=== PATIENT | female | born 1975 ===

== ENCOUNTER 2016-11-27 19:25 | Emergency (ER) | payer OTHER ==
[2016-11-28 09:02] LABS: HEMOGLOBIN 12.9 g/dL (11.0-16.0); MEAN CELL VOLUME 94.5 fL (81.0-99.0); MEAN CORPUSCULAR HEMOGLOBIN 31.2 pg (27.0-31.0); MEAN CORPUSCULAR HGB CONC 33.1 g/dL (33.0-37.0); MEAN PLATELET VOLUME 8.3 fL (7.2-11.7); RBC 4.11 Mil/uL (3.80-5.20); RED CELL DISTRIBUTION WIDTH 13.4 % (11.5-14.5)
[2016-11-28 09:22] LABS: ALBUMIN 3.7 g/dL (3.5-5.0); ALT/SGPT 60 U/L (9-52); AST/SGOT 64 U/L (14-36); BLOOD UREA NITROGEN 13 mg/dL (7-17); CALCIUM 8.7 mg/dl (8.6-10.4); GFR AFRICAN-AMERICAN > 60; GFR NON-AFRICAN AMERICAN > 60
[2016-11-28 10:11] LABS: SQUAMOUS EPITHIAL 2 /hpf (0-5); URINE BACTERIA RARE (<OCC); URINE BILIRUBIN NEGATIVE (NEGATIVE); URINE BLOOD NEGATIVE (NEGATIVE); URINE CLARITY Clear (Clear); URINE COLOR Yellow (YELLOW); URINE GLUCOSE (UA) NORMAL (Normal); URINE LEUKOCYTE ESTERASE NEG Leu/uL (Negative); URINE NITRATE NEGATIVE (NEGATIVE); URINE PROTEIN NEGATIVE (NEGATIVE); URINE UROBILINOGEN NORMAL mg/dL (0.2-1.0)
--- NOTE | 2016-11-29 11:23 | US ---
PROCEDURE: OB Pelvic Ultrasound HISTORY: COMPARISON: None available. TECHNIQUE: Transabdominal and transvaginal pelvic ultrasound was FINDINGS: UTERUS: Single Live intrauterine gestation. Gestational sac diameter is too small to estimate gestational age. Yolk sac is visualized. pole is not identified. Breann-gestational hemorrhage: None. Uterus measures 11.2 x 5.6 x 6.8 cm. Anteverted, normal in size and appearance. No fibroid or other mass lesion seen. CERVIX: Long and closed. No cervical abnormality seen. RIGHT OVARY: Not visualized. LEFT OVARY: Measures 3.1 x 2.9 x 2.9 cm. No mass. Normal flow. There is a 2.0 cm simple cyst. FREE FLUID: None. OTHER FINDINGS: None. IMPRESSION: Single live intrauterine gestation too small to estimate gestational age. Yolk sac is visualized. pole is not identified on the current examination. Clinical and imaging follow-up is advised to confirm viability. A preliminary report was provided by [facility].
== END 2016-11-28 01:47 | disposition home or self-care (01) ==
LOC: C.ER 19:25
DX: O26.891 Other specified pregnancy related conditions, first trimester (principal); R10.2 Pelvic and perineal pain; R11.0 Nausea; Z3A.00 Weeks of gestation of pregnancy not specified

== ENCOUNTER 2016-12-17 21:39 | Emergency (ER) | payer OTHER ==
--- NOTE | 2016-12-17 22:16 | C.PDOC ---
History Of Present Illness 41 year old female who presents to the ER with of cramping lower abdominal pain and hematuria. Patient reports she is ; LMP was 10/21. Denies fever, chills, nausea, or vomiting. Chief Complaint (Nursing): Abdominal Pain History Per: Patient History/Exam Limitations: no limitations Onset/Duration Of Symptoms: Days Current Symptoms Are (Timing): Still Present Location Of Pain/Discomfort: RLQ, LLQ Radiation Of Pain To:: None Quality Of Discomfort: Cramping Associated Symptoms: Urinary Symptoms. denies: Fever, Chills, Nausea, Vomiting Exacerbating Factors: None Alleviating Factors: None Recent travel outside of the [place]: No Abnormal Vaginal Bleeding: No Past Medical History Reviewed: Historical Data, Nursing Documentation, Vital Signs Vital Signs: Last Vital Signs Temp 98 F 12/18/16 00:51 Pulse 70 12/18/16 00:51 Resp 14 12/18/16 00:51 BP 120/70 12/18/16 00:51 Pulse Ox 98 12/18/16 00:51 - Medical History PMH: No Chronic Diseases Surgical History: Appendectomy, Cholecystectomy Family History: States: Unknown Family Hx - Social History Hx Alcohol Use: No Hx Substance Use: No - Immunization History Hx Tetanus Toxoid Vaccination: No Hx Influenza Vaccination: No Hx Pneumococcal Vaccination: No Review Of Systems Constitutional: Negative for: Fever, Chills Gastrointestinal: Positive for: Abdominal Pain. Negative for: Nausea, Vomiting Genitourinary: Positive for: Hematuria Physical Exam - Physical Exam Appears: Non-toxic Skin: Normal Color, Warm, Dry Head: Atraumatic, Normacephalic Oral Mucosa: Moist Chest: Symmetrical, No Tenderness Cardiovascular: Rhythm Regular, No Murmur Respiratory: Normal Breath Sounds, No Rales, No Rhonchi, No Wheezing Gastrointestinal/Abdominal: Soft, Tenderness (Minimal LLQ), Other (Obese) Pelvic: Normal External Exam, No Vaginal Bleeding, No Cervical Motion Tenderness , No Adnexal Tenderness, Other (Cervix closed) Neurological/Psych: Oriented x3, Normal Speech, Normal Cognition ED Course And Treatment - Laboratory Results Result Diagrams: 12/17/16 23:27 12/17/16 23:27 O2 Sat by Pulse Oximetry: 100 (Room air) Pulse Ox Interpretation: Normal - CT Scan/US Pelvic US Other Rad Studies (CT/US): Read By Radiologist, Radiology Report Reviewed CT/US Interpretation: EXAM: US , transabdominal and Transvaginal. CLINICAL HISTORY: 41 years old, female; Pain; complicated by abdominal or pelvic pain; Lower; First. trimester; Gestational age or lmp: [id number]; ; Additional info: Lower abd pain/ bleeding. TECHNIQUE: Real -time transabdominal and transvaginal obstetrical ultrasound of the maternal pelvis and a first. trimester with image documentation. Transvaginal imaging was used for better evaluation. of the fetus and adnexa. COMPARISON: 11/28/2016. FINDINGS: Gestation: An irregular gestational sac is identified within the uterus a mean gestational sac size of. 11.2 mm, corresponding to approximate gestational age of 5 weeks and 2 days. A pole is detected, with a crown-rump length measuring 3.9 mm, corresponding to approximate. gestational age of 6 weeks and one day. No cardiac activity is detected. A subchorionic hemorrhage is detected measuring 8.3 mm in greatest dimension. The cervix measures 4.1 cm, and is closed. Placenta/amniotic fluid: Cannot be adequately evaluated due to the early gestational age. Uterus/cervix: Unremarkable. No myometrial mass. Ovaries: Again identified within the left ovary is a rounded anechoic focus measuring 13 mm in. greatest dimension, consistent with a simple cyst. The right ovary is absent. Free fluid: No free fluid. IMPRESSION: Irregular gestational sac, with measurements corresponding to an approximate gestational age of 6. weeks and 1 day. No cardiac activity is detected. 8.3 mm subchorionic hemorrhage. 4 cm cervix, closed. Simple cyst within the left ovary, largely unchanged Progress Note: Blood work, Urinalysis, and pelvic US ordered. IV fluids administered. Disposition - Disposition Referrals: [facility] [Outside] Disposition: HOME/ ROUTINE Disposition Time: 00:19 Condition: STABLE Instructions: Abdominal Pain in (ED) - POA Present On Arrival: None - Clinical Impression Clinical Impression: Abdominal pain affecting - Scribe Statement The provider has reviewed the documentation as recorded by the Scribe Aj Gan All medical record entries made by the Scribe were at my direction and personally dictated by me. I have reviewed the chart and agree that the record accurately reflects my personal performance of the history, physical exam, medical decision making, and the department course for this patient. I have also personally directed, reviewed, and agree with the discharge instructions and disposition.
[2016-12-17] MEDS ORDERED: Sodium Chloride 0.9% 1,000 ML IV ONE (22:19)
[2016-12-17 23:30] LABS: BASO # 0.1 K/uL (0.0-0.2); BASO % 1.3 % (0.0-2.0); EOS # 0.3 K/uL (0.0-0.7); EOS % 3.1 % (0.0-4.0); HEMOGLOBIN 13.2 g/dL (11.0-16.0); LYMPH # 2.5 K/uL (1.0-4.3); LYMPH % 25.2 % (20.0-40.0); MEAN CORPUSCULAR HEMOGLOBIN 31.8 pg (27.0-31.0); MEAN CORPUSCULAR HGB CONC 33.5 g/dL (33.0-37.0); MEAN PLATELET VOLUME 8.2 fL (7.2-11.7); MONO # 1.3 K/uL (0.0-0.8); MONO % 12.7 % (0.0-10.0); NEUT # 5.8 K/uL (1.8-7.0); NEUT % 57.7 % (50.0-75.0); RBC 4.16 Mil/uL (3.80-5.20); RED CELL DISTRIBUTION WIDTH 13.7 % (11.5-14.5)
--- NOTE | 2016-12-17 23:32 | US ---
EXAM: US , transabdominal and Transvaginal CLINICAL HISTORY: 41 years old, female; Pain; complicated by abdominal or pelvic pain; Lower; First trimester; Gestational age or lmp: [id number]; ; Additional info: Lower abd pain/ bleeding TECHNIQUE: Real-time transabdominal and transvaginal obstetrical ultrasound of the maternal pelvis and a first trimester with image documentation. Transvaginal imaging was used for better evaluation of the fetus and adnexa. COMPARISON: 11/28/2016 FINDINGS: Gestation: An irregular gestational sac is identified within the uterus a mean gestational sac size of 11.2 mm, corresponding to approximate gestational age of 5 weeks and 2 days. A pole is detected, with a crown-rump length measuring 3.9 mm, corresponding to approximate gestational age of 6 weeks and one day. No cardiac activity is detected. A subchorionic hemorrhage is detected measuring 8.3 mm in greatest dimension. The cervix measures 4.1 cm, and is closed. Placenta/amniotic fluid: Cannot be adequately evaluated due to the early gestational age. Uterus/cervix: Unremarkable. No myometrial mass. Ovaries: Again identified within the left ovary is a rounded anechoic focus measuring 13 mm in greatest dimension, consistent with a simple cyst. The right ovary is absent. Free fluid: No free fluid. IMPRESSION: Irregular gestational sac, with measurements corresponding to an approximate gestational age of 6 weeks and 1 day. No cardiac activity is detected. 8.3 mm subchorionic hemorrhage. 4 cm cervix, closed. Simple cyst within the left ovary, largely unchanged. Please correlate these findings with the serum beta hCG (not resulted at the time of this examination) with short term sonographic followup.
[2016-12-17 23:41] LABS: ALBUMIN 3.9 g/dL (3.5-5.0)
[2016-12-17 23:44] LABS: AST/SGOT 71 U/L (14-36); GFR AFRICAN-AMERICAN > 60; GFR NON-AFRICAN AMERICAN > 60
[2016-12-17 23:45] LABS: ALB/GLOB RATIO 1.1 (1.0-2.1); ALT/SGPT 91 U/L (9-52); BLOOD UREA NITROGEN 13 mg/dL (7-17); CALCIUM 8.8 mg/dl (8.6-10.4)
[2016-12-18 00:39] LABS: INR 1.1
[2016-12-18 00:43] LABS: SQUAMOUS EPITHIAL 2 /hpf (0-5); URINE BILIRUBIN NEGATIVE (NEGATIVE); URINE BLOOD NEGATIVE (NEGATIVE); URINE CLARITY Clear (Clear); URINE COLOR Straw (YELLOW); URINE GLUCOSE (UA) NORMAL (Normal); URINE LEUKOCYTE ESTERASE NEG Leu/uL (Negative); URINE NITRATE NEGATIVE (NEGATIVE); URINE PROTEIN NEGATIVE (NEGATIVE); URINE UROBILINOGEN NORMAL mg/dL (0.2-1.0)
[2016-12-18 00:52] VITALS: BP 120/70; PULSE 70; RESP 14; TEMP 98
[2016-12-18 05:11] VITALS: O2SAT 100
== END 2016-12-18 00:52 | disposition home or self-care (01) ==
LOC: C.ER 21:39
DX: O26.891 Other specified pregnancy related conditions, first trimester (principal); R10.32 Left lower quadrant pain; Z3A.01 Less than 8 weeks gestation of pregnancy

== ENCOUNTER 2016-12-27 10:39 | Emergency (ER) | payer OTHER ==
[2016-12-27 10:44] VITALS: TEMP 98.3; O2SAT 98
[2016-12-27] MEDS ORDERED: Sodium Chloride 0.9% 1,000 ML IV ONE (12:18)
[2016-12-27] MEDS ORDERED: Sodium Chloride 0.9% 1,000 ML ONE (12:33)
[2016-12-27 12:37] LABS: BASO # 0.1 K/uL (0.0-0.2); BASO % 1.2 % (0.0-2.0); EOS # 0.2 K/uL (0.0-0.7); EOS % 2.6 % (0.0-4.0); HEMOGLOBIN 12.4 g/dL (11.0-16.0); LYMPH # 1.4 K/uL (1.0-4.3); LYMPH % 22.7 % (20.0-40.0); MEAN CELL VOLUME 96.1 fL (81.0-99.0); MEAN CORPUSCULAR HEMOGLOBIN 32.3 pg (27.0-31.0); MEAN CORPUSCULAR HGB CONC 33.6 g/dL (33.0-37.0); MEAN PLATELET VOLUME 8.6 fL (7.2-11.7); MONO # 0.6 K/uL (0.0-0.8); MONO % 10.1 % (0.0-10.0); NEUT % 63.4 % (50.0-75.0); NRBC % 0.1 % (0.0-2.0); RBC 3.85 Mil/uL (3.80-5.20); RED CELL DISTRIBUTION WIDTH 13.5 % (11.5-14.5); WHITE BLOOD COUNT 6.4 K/uL (4.8-10.8)
--- NOTE | 2016-12-27 12:45 | C.PDOC ---
History Of Present Illness 41 y/o female presents to the ED with complaints of vaginal bleeding. Pt is currently , spotting started 1 week ago, now is bleeding heavy clots. Pt has been to ED several times with this . US in the past showed intrauterine gestational sac, pt states gestational age is younger than she had thought. She has also had multiple beta-HCG tests, each test increasing from the previous. Pt is concerned and requesting evaluation for miscarriage. Denies abdominal cramping, nausea, vomiting, headache, fever, chills or any other complaints. Time Seen by Provider: 12/27/16 11:05 Chief Complaint (Nursing): Female Genitourinary History Per: Patient History/Exam Limitations: no limitations Onset/Duration Of Symptoms: Days Current Symptoms Are (Timing): Worse Severity: Moderate Associated Symptoms: denies: Fever, Chills, Nausea, Vomiting Alleviating Factors: None Recent travel outside of the [place]: No Abnormal Vaginal Bleeding: Yes Past Medical History Reviewed: Historical Data, Nursing Documentation, Vital Signs Vital Signs: Last Vital Signs Temp 98.3 F 12/27/16 10:43 Pulse 101 H 12/27/16 10:43 Resp 20 12/27/16 10:43 BP 142/91 H 12/27/16 10:43 Pulse Ox 98 12/27/16 12:47 Surgical History: Appendectomy, Cholecystectomy Family History: States: Unknown Family Hx - Social History Hx Alcohol Use: No Hx Substance Use: No - Immunization History Hx Tetanus Toxoid Vaccination: No Hx Influenza Vaccination: No Hx Pneumococcal Vaccination: No Review Of Systems Except As Marked, All Systems Reviewed And Found Negative. Constitutional: Negative for: Fever, Chills Gastrointestinal: Negative for: Nausea, Vomiting, Abdominal Pain Genitourinary: Positive for: Vaginal Bleeding Neurological: Negative for: Headache Physical Exam - Physical Exam Appears: Non-toxic, No Acute Distress Skin: Warm, Dry, No Rash Head: Atraumatic, Normacephalic Neck: Normal, Normal ROM Chest: Symmetrical Cardiovascular: Rhythm Regular Respiratory: Normal Breath Sounds, No Rales, No Rhonchi, No Wheezing Gastrointestinal/Abdominal: Normal Exam, Soft, No Tenderness Extremity: Normal ROM Extremity: Bilateral: Atraumatic Neurological/Psych: Oriented x3, Normal Speech, Normal Cognition ED Course And Treatment - Laboratory Results Result Diagrams: 12/27/16 12:30 12/27/16 12:30 O2 Sat by Pulse Oximetry: 98 (room air) Pulse Ox Interpretation: Normal Progress Note: Plan: labs, UA, beta-hcg Medical Decision Making Medical Decision Making: spoke with Dr. Zambrano, US shows fetys, , yolk sack, so has grown from last visit. Patient will be discharged and advised to follow up with Dr. Marquez in 2 days. Disposition Discussed With Dr.: Isaias Greer Counseled Patient/Family Regarding: Studies Performed, Diagnosis - Disposition Referrals: [facility] at [facility] [Outside] Disposition: HOME/ ROUTINE Disposition Time: 16:16 Condition: STABLE Additional Instructions: Follow up with Dr. Zimmerman in the [facility], on TuesdayDecember 29 at 8am. Bed rest, no working, no sexual intercourse. Instructions: Threatened Miscarriage (ED) Forms: General Discharge Instructions - POA Present On Arrival: None - Clinical Impression Clinical Impression: Threatened miscarriage - Scribe Statement The provider has reviewed the documentation as recorded by the Mary Rudolph Provider Attestation: All medical record entries made by the Mary were at my direction and personally dictated by me. I have reviewed the chart and agree that the record accurately reflects my personal performance of the history, physical exam, medical decision making, and the department course for this patient. I have also personally directed, reviewed, and agree with the discharge instructions and disposition.
[2016-12-27 12:47] LABS: GFR AFRICAN-AMERICAN > 60; GFR NON-AFRICAN AMERICAN > 60
[2016-12-27 12:48] LABS: BLOOD UREA NITROGEN 14 mg/dL (7-17); CALCIUM 8.7 mg/dl (8.6-10.4); SQUAMOUS EPITHIAL 5 /hpf (0-5); URINE BILIRUBIN NEGATIVE (NEGATIVE); URINE BLOOD 3+ (NEGATIVE); URINE CLARITY Clear (Clear); URINE COLOR Amber (YELLOW); URINE GLUCOSE (UA) NORMAL (Normal); URINE LEUKOCYTE ESTERASE NEG Leu/uL (Negative); URINE NITRATE NEGATIVE (NEGATIVE); URINE PROTEIN NEGATIVE (NEGATIVE); URINE UROBILINOGEN NORMAL mg/dL (0.2-1.0)
--- NOTE | 2016-12-27 15:33 | US ---
Indication: and bleeding Comparison: 1st trimester Ob ultrasound performed 12/17/16 Technique: Transvaginal pelvic ultrasound. Findings: The uterus measures approximately 9.4 x 5.5 x 6.2 cm. Anteverted. There is a single intrauterine fetus present. 5 mm yolk sac. The irregularly-shaped gestational sac measures 1.1 cm and is compatible with a gestational age of 5 weeks 2 days. The crown-rump length measures 0.2 cm and is compatible with a gestational age of 5 weeks 5 days. heart motion is not detected. Too small adjacent hypodense region suspected to reflect subchorionic hemorrhages each measuring approximately 6 mm. The right ovary has been surgically resected. The left ovary measures 1.3 x 2.6 x 3.3 cm and contains 8 mm anechoic lesion consistent with a cyst. Blood flow is demonstrated to the left ovary. Impression: Irregularly shaped gestational sac. Estimated gestational age 5 weeks 2 days by gestational sac calculation and 5 weeks 5 days by crown-rump length calculation. heart motion is not detected. Correlate clinically. 2 suspected subchorionic hemorrhages measuring approximately 6 mm. Right oophorectomy. Left ovarian cyst.
[2016-12-27 16:38] VITALS: BP 117/80; PULSE 87; RESP 18
== END 2016-12-27 16:38 | disposition home or self-care (01) ==
LOC: C.ER 10:39
DX: O20.0 Threatened abortion (principal); Z3A.01 Less than 8 weeks gestation of pregnancy
CPT/HCPCS: 76817; 80048; 81001; 84702; 85025; 86850; 86900; 96360; 99285; J7040

== ENCOUNTER 2017-06-06 21:05 | Emergency (ER) | payer OTHER ==
[2017-06-06 21:05] VITALS: BMI 42.3
[2017-06-06 22:42] LABS: BASO # 0.1 K/uL (0.0-0.2); BASO % 0.9 % (0.0-2.0); EOS # 0.2 K/uL (0.0-0.7); EOS % 2.5 % (0.0-4.0); HEMOGLOBIN 13.3 g/dL (11.0-16.0); LYMPH # 2.2 K/uL (1.0-4.3); LYMPH % 27.3 % (20.0-40.0); MEAN CELL VOLUME 94.3 fL (81.0-99.0); MEAN CORPUSCULAR HEMOGLOBIN 32.3 pg (27.0-31.0); MEAN CORPUSCULAR HGB CONC 34.3 g/dL (33.0-37.0); MEAN PLATELET VOLUME 8.9 fL (7.2-11.7); MONO # 0.9 K/uL (0.0-0.8); NEUT # 4.7 K/uL (1.8-7.0); NEUT % 58.3 % (50.0-75.0); RBC 4.13 Mil/uL (3.80-5.20); RED CELL DISTRIBUTION WIDTH 13.4 % (11.5-14.5); WHITE BLOOD COUNT 8.1 K/uL (4.8-10.8)
[2017-06-06 22:51] LABS: ALB/GLOB RATIO 1.1 (1.0-2.1); ALT/SGPT 83 U/L (9-52); AST/SGOT 74 U/L (14-36); BLOOD UREA NITROGEN 14 mg/dL (7-17); CALCIUM 8.3 mg/dl (8.6-10.4); GFR AFRICAN-AMERICAN > 60; GFR NON-AFRICAN AMERICAN > 60
--- NOTE | 2017-06-06 22:52 | C.PDOC ---
History Of Present Illness Patient is a 42 y/o female who presents to the ED with a complaint of CP and SOB upon waking up this morning. Patient reports to have tried taking a nap in attempt to alleviate symptoms, but awoke again without relief. Denies any nausea , vomiting, diarrhea, wheezing, coughing, recent travel, long trips, control, or leg swelling. Patient has a Hx of asthma. No other physical complaints at this time. Time Seen by Provider: 06/06/17 21:30 Chief Complaint (Nursing): Chest Pain History Per: Patient History/Exam Limitations: no limitations Onset/Duration Of Symptoms: Hrs (this morning) Current Symptoms Are (Timing): Still Present Associated Symptoms: Other. denies: Nausea Recent travel outside of the [place]: No Past Medical History Reviewed: Historical Data, Nursing Documentation, Vital Signs Vital Signs: Last Vital Signs Temp 98.9 F 06/07/17 05:23 Pulse 91 H 06/07/17 05:23 Resp 18 06/07/17 05:23 BP 119/83 06/07/17 05:23 Pulse Ox 97 06/07/17 05:23 - Medical History PMH: Asthma Surgical History: Appendectomy, Cholecystectomy Other Surgeries: right ovary removal, bilateral breast augmentation, tummy tuck Family History: States: Unknown Family Hx - Social History Hx Alcohol Use: No Hx Substance Use: No - Immunization History Hx Tetanus Toxoid Vaccination: No Hx Influenza Vaccination: No Hx Pneumococcal Vaccination: No Review Of Systems Constitutional: Negative for: Fever, Chills Eyes: Negative for: Pain ENT: Negative for: Ear Pain Cardiovascular: Positive for: Chest Pain Respiratory: Positive for: Shortness of Breath, SOB with Excertion. Negative for: Cough, Hemoptysis, Pleuritic Pain, Sputum, Wheezing Gastrointestinal: Negative for: Nausea, Vomiting Musculoskeletal: Negative for: Neck Pain, Shoulder Pain Neurological: Negative for: Weakness, Numbness, Incoordination Psych: Negative for: Anxiety Physical Exam - Physical Exam Appears: Well, Non-toxic, No Acute Distress Skin: Normal Color, Warm, Dry Head: Atraumatic, Normacephalic Eye(s): bilateral: Normal Inspection Ear(s): Bilateral: Normal Oral Mucosa: Moist Tongue: Normal Appearing Neck: Normal Chest: Symmetrical Cardiovascular: Rhythm Regular, No Murmur Respiratory: Normal Breath Sounds, No Rales, No Rhonchi, No Wheezing Gastrointestinal/Abdominal: Soft, No Tenderness Extremity: Bilateral: Atraumatic Pulses: Left Carotid: Normal Neurological/Psych: Oriented x3, Normal Speech, Normal Cognition Gait: Steady ED Course And Treatment - Laboratory Results Result Diagrams: 06/06/17 22:22 06/06/17 22:22 O2 Sat by Pulse Oximetry: 100 - Radiology CXR: Interpreted by Me, Viewed By Me CXR Interpretation: Yes: No Acute Disease - CT Scan/US CT Angio Other Rad Studies (CT/US): Interpreted By Me, Read By Radiologist CT/US Interpretation: EXAM: CT Angiography Chest With Intravenous Contrast. EXAM DATE/TIME: 06/07/2017 1:14 AM. CLINICAL HISTORY: 42 years old, female; Pain; Chest pain; Additional info: Shortness of breath. TECHNIQUE: Axial computed tomographic angiography images of the chest with intravenous contrast using. pulmonary embolism protocol. All CT scans at this facility use one or more dose reduction. techniques, viz.: automated exposure control; ma/kV adjustment per patient size (including targeted. exams where dose is matched to indication; i.e. head); or iterative reconstruction technique. MIP reconstructed images were created and reviewed. Coronal and sagittal reformatted images were created and reviewed. CONTRAST: 100 mL of [id number] administered intravenously. COMPARISON: No relevant prior studies available. FINDINGS: PULMONARY ARTERIES: Contrast opacification of the pulmonary arteries is adequate, and there. are no filling defects seen to suggest pulmonary embolism. AORTA: No evidence of aortic dissection. LUNGS: No evidence of significant focal consolidation/infiltrate in the lungs. No evidence of diffuse. pulmonary vascular congestion. PLEURAL SPACE: No pneumothorax or pleural effusions seen. HEART: No evidence of significant pericardial effusion. BONES/JOINTS: No acute bony abnormality identified. SOFT TISSUES: Bilateral breast implants in place. 2.5 cm masslike density in the left breast. This. contains fat density within it, and demonstrates peripheral calcifications. It most likely represents an. area of fat necrosis. LYMPH NODES: No evidence of diffuse lymphadenopathy. IMPRESSION: - No evidence of pulmonary embolism or other significant acute abnormality in the chest. - See above for remaining findings. Progress Note: EKG, CT angio, and blood work ordered. Patient to be discharged due to negative CT angio. Medical Decision Making Medical Decision Making: Lab results Ddimer 399 other labs unremarkable cxr neg ekg unremarkable ct pe ordered due to elevated d-dimer. this is a neg study., no acute findings. Pt feels better. Disposition Counseled Patient/Family Regarding: Studies Performed, Diagnosis, Need For Followup - Disposition Referrals: [facility] at [facility] [Outside] [facility] at [facility] [Outside] [facility] [place] [Outside] Disposition: HOME/ ROUTINE Disposition Time: 04:18 Condition: STABLE Additional Instructions: return to e dif symptoms should worsen Forms: [facility] (Nicaraguan) - Clinical Impression Clinical Impression: Pleuritic pain, Chest discomfort - Scribe Statement The provider has reviewed the documentation as recorded by the Scribe Lay Avila All medical record entries made by the Scribe were at my direction and personally dictated by me. I have reviewed the chart and agree that the record accurately reflects my personal performance of the history, physical exam, medical decision making, and the department course for this patient. I have also personally directed, reviewed, and agree with the discharge instructions and disposition.
[2017-06-06 23:51] LABS: HCG,QUALITATIVE URINE NEGATIVE (NEGATIVE)
[2017-06-06 23:53] LABS: SQUAMOUS EPITHIAL 2 /hpf (0-5); URINE BACTERIA OCC (<OCC); URINE BILIRUBIN NEGATIVE (NEGATIVE); URINE BLOOD NEGATIVE (NEGATIVE); URINE CLARITY Clear (Clear); URINE COLOR Yellow (YELLOW); URINE GLUCOSE (UA) NORMAL (Normal); URINE LEUKOCYTE ESTERASE NEG Leu/uL (Negative); URINE NITRATE NEGATIVE (NEGATIVE); URINE PROTEIN NEGATIVE (NEGATIVE)
[2017-06-07] MEDS ORDERED: Iodixanol 320 MG/ML 100 ML BOTTLE IV ONE (02:05)
--- NOTE | 2017-06-07 04:07 | CT ---
EXAM: CT Angiography Chest With Intravenous Contrast EXAM DATE/TIME: 06/07/2017 1:14 AM CLINICAL HISTORY: 42 years old, female; Pain; Chest pain; Additional info: Shortness of breath TECHNIQUE: Axial computed tomographic angiography images of the chest with intravenous contrast using pulmonary embolism protocol. All CT scans at this facility use one or more dose reduction techniques, viz.: automated exposure control; ma/kV adjustment per patient size (including targeted exams where dose is matched to indication; i.e. head); or iterative reconstruction technique. MIP reconstructed images were created and reviewed. Coronal and sagittal reformatted images were created and reviewed. CONTRAST: 100 mL of [id number] administered intravenously. COMPARISON: No relevant prior studies available. FINDINGS: PULMONARY ARTERIES: Contrast opacification of the pulmonary arteries is adequate, and there are no filling defects seen to suggest pulmonary embolism. AORTA: No evidence of aortic dissection. LUNGS: No evidence of significant focal consolidation/infiltrate in the lungs. No evidence of diffuse pulmonary vascular congestion. PLEURAL SPACE: No pneumothorax or pleural effusions seen. HEART: No evidence of significant pericardial effusion. BONES/JOINTS: No acute bony abnormality identified. SOFT TISSUES: Bilateral breast implants in place. 2.5 cm masslike density in the left breast. This contains fat density within it, and demonstrates peripheral calcifications. It most likely represents an area of fat necrosis. LYMPH NODES: No evidence of diffuse lymphadenopathy. IMPRESSION: - No evidence of pulmonary embolism or other significant acute abnormality in the chest. - See above for remaining findings.
[2017-06-07 05:24] VITALS: BP 119/83; PULSE 91; RESP 18; TEMP 98.9
[2017-06-07 05:27] VITALS: O2SAT 100
--- NOTE | 2017-06-07 10:05 | RAD ---
Chest x-ray two views History: Chest pain. Comparison: None available. Findings: No focal infiltrate or effusion. Heart size within normal limits. Impression: No focal infiltrate or effusion.
--- NOTE | 2017-06-08 23:07 | CARD ---
APPROVED REPORT EKG Measurement Heart [id number] <Conclusion> Normal sinus rhythm Normal ECG
== END 2017-06-07 05:31 | disposition home or self-care (01) ==
LOC: C.ER 21:05
DX: R07.9 Chest pain, unspecified (principal)
CPT/HCPCS: 71046; 71275; 80053; 81001; 84484; 84703; 85025; 85378; 93005; 99285; Q9967

== ENCOUNTER 2017-09-16 11:47 | Emergency (ER) | payer OTHER ==
[2017-09-16 11:47] VITALS: BMI 42.3
[2017-09-16 11:57] VITALS: BP 130/91; PULSE 119; RESP 17; TEMP 98.1; O2SAT 99
--- NOTE | 2017-09-16 13:08 | C.PDOC ---
History Of Present Illness 42 year old female presents to the ED c/o generalized body aches, dry cough, nasal congestion, throat pain for the past several days. Patient reports she has been taking Tylenol and Motrin for her symptoms. Patient denies fever, chills, nausea, vomit, diarrhea, rash, sick contacts. Time Seen by Provider: 09/16/17 12:00 Chief Complaint (Nursing): Cough, Cold, Congestion History Per: Patient History/Exam Limitations: no limitations Onset/Duration Of Symptoms: Days Current Symptoms Are (Timing): Still Present Location Of Pain: Throat, Diffuse Myalgias Sick Contacts (Context): None Associated Symptoms: Sore Throat, Cough, Myalgias, Nasal Congestion Ear Symptoms: Bilateral: None Recent travel outside of the [place]: No Additional History Per: Patient Past Medical History Reviewed: Historical Data, Nursing Documentation, Vital Signs Vital Signs: Last Vital Signs Temp 98.1 F 09/16/17 11:55 Pulse 119 H 09/16/17 11:55 Resp 17 09/16/17 11:55 BP 130/91 H 09/16/17 11:55 Pulse Ox 99 09/16/17 13:10 - Medical History PMH: No Chronic Diseases Denies: Asthma (denies 09/16/17) Surgical History: Appendectomy, Cholecystectomy Family History: States: Unknown Family Hx - Social History Hx Alcohol Use: No Hx Substance Use: No - Immunization History Hx Tetanus Toxoid Vaccination: No Hx Influenza Vaccination: No Hx Pneumococcal Vaccination: No Review Of Systems Constitutional: Negative for: Fever, Chills ENT: Positive for: Nose Congestion, Throat Pain Respiratory: Positive for: Cough. Negative for: Shortness of Breath Gastrointestinal: Negative for: Vomiting, Abdominal Pain Musculoskeletal: Negative for: Back Pain Skin: Negative for: Rash Physical Exam - Physical Exam Appears: Non-toxic, No Acute Distress Skin: Normal Color, Warm, Dry Head: Atraumatic, Normacephalic Eye(s): bilateral: Normal Inspection Ear(s): Bilateral: Normal Nose: No Discharge Oral Mucosa: Moist Throat: Normal, No Erythema, No Exudate Neck: Normal ROM, Supple Chest: Symmetrical Cardiovascular: Rhythm Regular, No Murmur Respiratory: Normal Breath Sounds, No Rales, No Rhonchi, No Wheezing Gastrointestinal/Abdominal: Soft, No Tenderness, No Guarding, No Rebound Extremity: Normal ROM, No Tenderness, No Swelling Neurological/Psych: Oriented x3, Normal Motor, Normal Sensation Gait: Steady ED Course And Treatment O2 Sat by Pulse Oximetry: 99 (On RA) Pulse Ox Interpretation: Normal - Radiology CXR: Interpreted by Me CXR Interpretation: Yes: No Acute Disease Medical Decision Making Medical Decision Making: Plan: * CXR * Claritin 10 mg PO * Prednisone 40 mg PO Disposition - Disposition Referrals: [facility] at [facility] [Outside] Disposition: HOME/ ROUTINE Disposition Time: 13:29 Condition: GOOD Additional Instructions: Follow up with the medical doctor within 1-2 days. Return if worsened Prescriptions: Benzonatate [Tessalon Perles] 200 mg PO TID PRN #21 sgl PRN Reason: Cough Loratadine [Claritin] 10 mg PO DAILY #10 tab predniSONE [Prednisone] 10 mg PO BID #10 tab Instructions: Upper Respiratory Infection (ED) Forms: [email or web address] (Faroese) - Clinical Impression Clinical Impression: Upper respiratory infection - PA / RESEARCH PROFESSIONAL / Resident Statement MD/DO has reviewed & agrees with the documentation as recorded. - Scribe Statement The provider has reviewed the documentation as recorded by the Scribe Ubaldo Sotelo All medical record entries made by the Scribe were at my direction and personally dictated by me. I have reviewed the chart and agree that the record accurately reflects my personal performance of the history, physical exam, medical decision making, and the department course for this patient. I have also personally directed, reviewed, and agree with the discharge instructions and disposition.
--- NOTE | 2017-09-16 14:30 | RAD ---
HISTORY: Cough and fever COMPARISON: Comparison chest dated 06/06/2017 TECHNIQUE: Chest PA and lateral FINDINGS: LUNGS: Poor inspiration with low lung volumes, crowded bronchovascular markings and mild bibasilar atelectasis. PLEURA: No significant pleural effusion identified. No pneumothorax apparent. CARDIOVASCULAR: Normal. OSSEOUS STRUCTURES: Minor multilevel degenerative spondylosis of the thoracic spine VISUALIZED UPPER ABDOMEN: Normal. OTHER FINDINGS: None. IMPRESSION: Poor inspiration with low lung volumes, crowded bronchovascular markings and mild bibasilar atelectasis.
--- NOTE | 2017-09-20 23:05 | CARD ---
APPROVED REPORT EKG Measurement Heart [id number] <Conclusion> Sinus tachycardia Otherwise normal ECG
== END 2017-09-16 13:43 | disposition home or self-care (01) ==
LOC: C.ER 11:47
DX: J06.9 Acute upper respiratory infection, unspecified (principal)

== ENCOUNTER 2018-01-19 23:08 | Emergency (ER) | payer OTHER ==
[2018-01-19 23:08] VITALS: BMI 42.3
[2018-01-19 23:17] VITALS: RESP 18
--- NOTE | 2018-01-19 23:27 | C.PDOC ---
History Of Present Illness 42 year old female presents to the ED c/o dysuria, urinary frequency. Patient is also c/o right upper tooth pain, patient states her tooth filling came out. Patient denies fever, chills, nausea, vomit, diarrhea, hematuria, vaginal bleeding, vaginal discharge. Chief Complaint (Nursing): Female Genitourinary History Per: Patient History/Exam Limitations: no limitations Onset/Duration Of Symptoms: Days Current Symptoms Are (Timing): Still Present Quality: Positive for: "Pain" Recent travel outside of the [place]: No Additional History Per: Patient Past Medical History Reviewed: Historical Data, Nursing Documentation, Vital Signs Vital Signs: Last Vital Signs Temp 98.5 F 01/19/18 23:14 Pulse 100 H 01/19/18 23:14 Resp 18 01/19/18 23:14 BP 145/96 H 01/19/18 23:35 Pulse Ox 96 01/19/18 23:31 - Medical History PMH: No Chronic Diseases Denies: Asthma (denies 09/16/17) Surgical History: Appendectomy, Cholecystectomy Family History: States: Unknown Family Hx - Social History Hx Alcohol Use: No Hx Substance Use: No - Immunization History Hx Tetanus Toxoid Vaccination: No Hx Influenza Vaccination: No Hx Pneumococcal Vaccination: No Review Of Systems Constitutional: Negative for: Fever, Chills ENT: Positive for: Mouth Pain. Negative for: Nose Discharge, Mouth Swelling Cardiovascular: Negative for: Chest Pain, Palpitations Respiratory: Negative for: Cough, Shortness of Breath Gastrointestinal: Negative for: Nausea, Vomiting, Abdominal Pain, Diarrhea Genitourinary: Positive for: Dysuria, Frequency. Negative for: Vaginal Discharge, Vaginal Bleeding Skin: Negative for: Rash Neurological: Negative for: Weakness, Numbness Physical Exam - Physical Exam Appears: Non-toxic, No Acute Distress Skin: Normal Color, Warm, Dry Head: Atraumatic, Normacephalic Eye(s): bilateral: Normal Inspection Oral Mucosa: Moist Teeth: Other (dental caries right upper molar) Gingiva: No Swelling Throat: Normal, No Erythema, No Exudate Neck: Normal ROM, Supple Chest: Symmetrical Cardiovascular: Rhythm Regular Respiratory: Normal Breath Sounds, No Rales, No Rhonchi, No Wheezing Gastrointestinal/Abdominal: Soft, Tenderness (hypogastric), No Guarding, No Rebound Back: No CVA Tenderness Extremity: Normal ROM, No Tenderness, No Swelling Neurological/Psych: Oriented x3, Normal Speech Gait: Steady ED Course And Treatment O2 Sat by Pulse Oximetry: 96 (ON RA) Pulse Ox Interpretation: Normal Medical Decision Making Medical Decision Making: Plan: * Toradol 60 mg IM * Urine culture * UA Disposition Counseled Patient/Family Regarding: Diagnosis - Disposition Referrals: Non [facility] Provider, [Primary Care Provider] - [facility] [Outside] Disposition: HOME/ ROUTINE Disposition Time: 23:46 Condition: STABLE Prescriptions: AMPicillin [Ampicillin] 500 mg PO Q6 #20 cap Ibuprofen [Motrin] 1 tab PO TID PRN #30 tab PRN Reason: Pain Instructions: Urinary Tract Infections in Adults, Dental Pain (DC), Tooth Decay , Adult (DC) Forms: [facility] (Lao) - POA Present On Arrival: None - Clinical Impression Clinical Impression: Dental caries, UTI (urinary tract infection) - Scribe Statement The provider has reviewed the documentation as recorded by the Scribe Ubaldo Sotelo All medical record entries made by the Scribe were at my direction and personally dictated by me. I have reviewed the chart and agree that the record accurately reflects my personal performance of the history, physical exam, medical decision making, and the department course for this patient. I have also personally directed, reviewed, and agree with the discharge instructions and disposition.
[2018-01-19 23:39] LABS: HCG,QUALITATIVE URINE NEGATIVE (NEGATIVE); SQUAMOUS EPITHIAL 2 /hpf (0-5); URINE BACTERIA OCC (<OCC); URINE BILIRUBIN NEGATIVE (NEGATIVE); URINE BLOOD NEGATIVE (NEGATIVE); URINE CLARITY Clear (Clear); URINE COLOR Yellow (YELLOW); URINE GLUCOSE (UA) NORMAL (Normal); URINE LEUKOCYTE ESTERASE NEG Leu/uL (Negative); URINE PROTEIN NEGATIVE (NEGATIVE)
[2018-01-20 01:06] VITALS: BP 136/89; PULSE 89; TEMP 98.2; O2SAT 99
== END 2018-01-20 01:06 | disposition home or self-care (01) ==
LOC: SUPCPDRO 23:08 → C.ER 23:08
DX: N39.0 Urinary tract infection, site not specified (principal); K02.9 Dental caries, unspecified
CPT/HCPCS: 81001; 84703; 96372; 99285; J1885